=== PATIENT | female | born 1970 | race Caucasian/White ===

== ENCOUNTER 2018-10-30 05:48 | Emergency (ER) | payer BC, OTHER ==
[~2018-10-30] VITALS: Ht 154.9 cm; Wt 68.0 kg
[2018-10-30 05:49] VITALS: Ht 154.9 cm; Wt 68.0 kg
[2018-10-30 06:37] VITALS: BP 111/74
== END 2018-10-30 06:37 | disposition home or self-care (01) ==
LOC: ED 05:48
DX: J02.9 Acute pharyngitis, unspecified (principal); Z86.2 Personal history of diseases of the blood and blood-forming organs and certain disorders involving the immune mechanism; Z88.1 Allergy status to other antibiotic agents
CPT/HCPCS: J1100; J1885; J2930